=== PATIENT | female | born 1990 | race African-American/Black ===

== ENCOUNTER → 2018-06-29 14:30 | Outpatient (CLI) | payer OTHER, SELFPAY ==
--- NOTE | 2018-06-29 | DI.US.S_ITS ---
PROCEDURE: US OB >= 14 WEEKS FETUS INDICATIONS: ANATOMY SCAN OUTSIDE/PRIOR DATING DATA: Last menstrual period (LMP): Unknown. LMP-based estimated date of delivery (VLAD): N./A.. First dating scan (date and location): 06/29/18. Estimated date of delivery (VLAD) from first dating scan: 11/20/18. TECHNIQUE: Real-time scanning was performed of the fetus, with image documentation and biometric measurements. Endovaginal scanning: No COMPARISON: None. FINDINGS: General: A single living intrauterine gestation is present. Presentation: Breech. Placenta: Placental position is posterior, without previa. Amniotic fluid index: 12.8 cm, normal range is 5-24 cm. heart rate: 145 beats per minute. Maternal cervical canal: 3.7 cm long. Normal lower limit is 2.5 cm. biometrics: Biparietal diameter: 19 weeks 3 days Head circumference: 19 weeks 2 days Abdominal circumference: 20 weeks Femur length: 18 weeks 6 days Estimated gestational age from initial scan: not applicable. Composite gestational: 93 g 6 Measurement variability for biometric dating: +/- 7 days from 14 weeks to 15 weeks 6 days gestation, +/- 10 days from 16 weeks to 21 weeks 6 days gestation, +/- 2 weeks from 22 weeks to 27 weeks 6 days gestation, +/- 3 weeks for 28 weeks gestation or later. weight reference: 4500 g or EFW >90/95% is considered macrosomia or large for gestational age. EFW <10% is small for gestational age. EFW 5% or less is considered intra-uterine growth restriction. Anatomic survey: Neuro: Ventricles are non-dilated at less than 10 mm. Cisterna magna is normal at 3-11 mm. Cerebellum is normal in size and morphology. Nuchal skin fold: Normal at less than 6 mm between 14-21 weeks gestational age. Face: Nose and lips, facial profile are normal. Spine: No evidence for spina bifida. Heart: 4-chambered heart is present, with normal ventricular outflow tracts. Diaphragm: Diaphragm is intact. Stomach: Left-sided stomach is present. Kidneys: No hydronephrosis. Normal is less than 5 mm in 2nd trimester, less than 7 mm in 3rd trimester. Cord: 3-vessel cord has orthotopic insertion. Bladder: Normal in size. Extremities: All 4 extremities identified. IMPRESSION: Single living IUP present with a mean composite gestational age of 19 weeks 3 days. Normal anatomic survey. Dictated by: Myles Cabrera [facility] Interpreted: aLrry Esteban MD on 06/29/2018 at 15:44 Approved by: Larry Esteban M.D. on 06/29/2018 at 19:02
== END ==
PROVIDERS: PCP Family Medicine; Visit Provider Family Medicine
DX: Z36.89 Encounter for other specified antenatal screening (principal); Z3A.19 19 weeks gestation of pregnancy
CPT/HCPCS: 76811

== ENCOUNTER 2018-09-28 06:55 | Observation (INO) | payer OTHER, SELFPAY ==
--- NOTE | 2018-09-28 | DI.US.S_ITS ---
PROCEDURE: OB >= 14 WEEKS FETUS, LIMITED. INDICATIONS: LABOR; CERVIX, EFW, OLLIE OUTSIDE/PRIOR DATING DATA: Last menstrual period (LMP): Not available. LMP-based estimated date of delivery (VLAD): Not available. First dating scan (date and location): 06/29/2018. Estimated date of delivery (VLAD) from first dating scan: 11/20/2018. TECHNIQUE: Real-time scanning was performed of the fetus, with image documentation and biometric measurements. Endovaginal scanning: Not performed COMPARISON: [facility], OB >= 14 WEEKS FETUS, 06/29/2018, 14:44. FINDINGS: General: A single living intrauterine gestation is present. Presentation: Vertex. Placenta: Placental position is fundal, without previa. Amniotic fluid index: 11.3 cm, normal range is 5-24 cm. heart rate: 143 beats per minute. Maternal cervical canal: 3.3 cm long. Normal lower limit is 2.5 cm. biometrics: Biparietal diameter: 32 weeks 0 day Head circumference: 32 weeks 4 days Abdominal circumference: 32 weeks 3 days Femur length: 31 weeks 0 day Estimated gestational age from initial scan: 32 weeks 3 days. Composite gestational age from present scan: 32 weeks 0 day Estimated weight and percentile: 1872 gm, 26% for gestational age Measurement variability for biometric dating: +/- 7 days from 14 weeks to 15 weeks 6 days gestation, +/- 10 days from 16 weeks to 21 weeks 6 days gestation, +/- 2 weeks from 22 weeks to 27 weeks 6 days gestation, +/- 3 weeks for 28 weeks gestation or later. weight reference: 4500 g or EFW >90/95% is considered macrosomia or large for gestational age. EFW <10% is small for gestational age. EFW 5% or less is considered intra-uterine growth restriction. Anatomic survey: Not performed. IMPRESSION: 1. A single living intrauterine gestation with appropriate interval growth. 2. Cervix is closed measuring 3.3 cm. 3. Normal OLLIE (11.3 cm). 4. weight is estimated at 1872 gm (26th percentile). Dictated by: Joselo Pineda M.D. on 10/01/2018 at 10:02 Approved by: Joselo Pineda M.D. on 10/01/2018 at 10:09
[2018-09-28 09:09] LABS: RBC Urine None Seen (0-5/HPF)
[2018-09-28 09:13] LABS: Appearance Urine UA CLEAR; Bilirubin Urine UA NEGATIVE (NEGATIVE); Color Urine UA YELLOW; Glucose Urine UA NEGATIVE (Negative); Ketones Urine UA NEGATIVE (NEGATIVE); Leukocyte Esterase Urine UA TRACE (NEGATIVE); Nitrite Urine UA NEGATIVE (Negative); Occult Blood Urine UA TRACE-LYSED (Negative); Protein Urine UA NEGATIVE (Negative); Specific Gravity Urine UA 1.015 (1.000-1.035); Urobilinogen Urine UA 0.2 E.U./dL (0.2)
[2018-09-28] MEDS: LACTATED RINGERS 1,000 ML 150 ML IV (09:22)
[2018-09-28 09:24] LABS: Bacteria Urine Few (2-10); Culture Indicated Urine Specimen Cultured; Squamous Epithelial Cell Urine 1-5 /HPF; WBC Urine 0-1/HPF (0-5/HPF)
[2018-09-28 11:05] LABS: Strep Grp B PCR NEG for Grp B Strep
[2018-09-28] MEDS: NIFEdipine 10 MG CAPSULE PO (11:23)
--- NOTE | 2018-09-28 11:36 | PM.OBTRLD ---
Visit Information Visit Information Date of evaluation: 09/28/18 Primary OB Provider: Natalya Khoury On-call OB Provider: Opal Lees Reason for Evaluation: Yes pre-term labor Comments/Additional reasons for admission: Patient presented to the center with irregular painful contractions since the night prior as well as light spotting in the morning. No recent intercourse. Denied urinary symptoms. Has had increased vaginal discharge during which she has discussed with her PCP. She had three contractions the first hour on the monitor. US showed cervical length of 3.3 cm and normal OLLIE. Contractions spaced with IV hydration and nifedipine and patient reported improvement in her pain. UA was not concerning for UTI however urine culture is pending. Wet preg negative. Gonorrhea/chlamydia and GBS pending. Patient was discharged home with a prescription for nifedipine and instructions to follow up with Dr. Khoury next week. Return precautions reviewed with patient as well. Objective Labs Labs: Laboratory Results - last 24 hr 09/28/18 09/28/18 08:40 09:20 Urine Color Yellow Urine Appearance Clear Urine pH 7.0 Ur Specific [place] 1.015 Urine Protein Negative Urine Glucose (UA) Negative Urine Ketones Negative Urine Occult Blood Trace-lysed Urine Nitrate Negative Urine Bilirubin Negative Urine Urobilinogen 0.2 Ur Leukocyte Esterase Trace H Urine RBC None seen Urine WBC 0-1/hpf Ur Squamous Epith Cells 1-5 /hpf Urine Bacteria Few (2-10) H Ur Culture Indicated? Specimen cultured Group B Strep (PCR) Neg for grp b strep Evaluation Evaluation Baseline heart rate: 140 Variability: Moderate (11-25) monitor accelerations: Present monitor decelerations: Absent Uterine Contraction Intensity: Mild Category of Tracing: I Laboratory results: Laboratory Tests 09/28/18 09/28/18 08:40 09:20 Urine Color Yellow Urine Appearance Clear Urine pH 7.0 Ur Specific [place] 1.015 Urine Protein Negative Urine Glucose (UA) Negative Urine Ketones Negative Urine Occult Blood Trace-lysed Urine Nitrate Negative Urine Bilirubin Negative Urine Urobilinogen 0.2 Ur Leukocyte Esterase Trace H Urine RBC None seen Urine WBC 0-1/hpf Ur Squamous Epith Cells 1-5 /hpf Urine Bacteria Few (2-10) H Ur Culture Indicated? Specimen cultured Group B Strep (PCR) Neg for grp b strep Diagnosis, Plan/Disposition Final Diagnosis (1) 32 weeks gestation of : Current Visit: No Status: Acute (2) contractions: Current Visit: No Status: Acute Plan/Disposition Plan: 28 year old at 32+2 weeks gestation with h/o prior . Patient presented with infrequent though painful contractions and reports of spotting. OB Disposition: home
[2018-10-03 13:40] LABS: C.trachomatis RNA Not detected
[2018-10-03 13:41] LABS: N.gonorrhoeae RNA Not detected
== END 2018-09-28 12:59 | disposition home or self-care (01) ==
PROVIDERS: Family Medicine; Admitting Provider Family Medicine; PCP Family Medicine; Visit Provider Family Medicine
DX: O60.03 Preterm labor without delivery, third trimester (principal); Z3A.32 32 weeks gestation of pregnancy
CPT/HCPCS: 59050; 76801; 76811; 81001; 87081; 87086; 87147; 87210; 87491; 87591; 87653; 96360; G0378; G0379

== ENCOUNTER 2018-10-24 21:07 | Outpatient (CLI) | payer OTHER, SELFPAY | END 2018-10-24 21:54 | disposition home or self-care (01) | LOC: LABOR 21:10 → OB 10-26 12:32 | PROVIDERS: PCP Family Medicine; Visit Provider Family Medicine | DX: O47.03 False labor before 37 completed weeks of gestation, third trimester (principal); Z3A.36 36 weeks gestation of pregnancy | CPT/HCPCS: 59025; 84112; G0378; G0379 ==

== ENCOUNTER → 2018-10-26 16:23 | Outpatient (REF) | payer OTHER, SELFPAY | LOC: LAB 16:23 | PROVIDERS: PCP Family Medicine; Visit Provider Family Medicine | DX: Z34.03 Encounter for supervision of normal first pregnancy, third trimester (principal) | CPT/HCPCS: 87081; 87147 ==

== ENCOUNTER 2018-11-12 05:28 | Inpatient (IN) | payer OTHER, SELFPAY ==
--- NOTE | 2018-11-12 07:14 | PM.OBHP.1 ---
OB HPI Date/Time Date of admission: 11/12/18 Date Patient Seen: 11/12/18 Time Patient Seen: 07:15 History of Present Condition Chief complaint: [id number] : 3 Para: 1 Estimated Date of Delivery: 11/19/18 Narrative: Kelly Vee is a 28 year old female 39 weeks gestational age by good [employer] who presents for repeat section. Patient has had an uncomplicated except for some labor which she has been on Procardia for up until delivery date. No other complications. Feeling well. No leaking fluid. No bleeding no pain. good movement. Patient had previous 01/20/2012 with male 7 lb no complications. Patient with no significantt past medical history Indications Operative indications ( section): previous uterine surgery History of Present care: good care Dating criteria: LMP confirmed by 1st trimester US Abnormal ultrasound findings: None Obstetrical complications: other Medical complications: none Narrative: History of labor Preadmission Labs Blood type: O (+) positive -: Antibody screen: negative, GBS status: negative, HBsAG: negative, HIV: negative, HSV 1: negative, HSV 2: negative and RPR/VDLR: negative -: Chlamydia screen: not detected and Gonorrhea screen: not detected -: Rubella: immune HCAB: negative PAP: Normal Integrated screen: Not done Prior (ies) History: previous c/s 01/20/12 emergent 7lb male no complications Evaluation Evaluation Baseline heart rate: 140 monitor decelerations: Absent Meds Home Medications Medication Instructions Recorded Confirmed Type nifedipine 10 mg PO Q2H PRN #30 cap 09/28/18 Rx nifedipine 10 mg PO Q2HR PRN #30 cap 09/28/18 Rx Review of Systems Review of Systems All systems reviewed & are unremarkable except as noted in HPI and below Exam Narrative Exam Narrative: Alert female smiling interactive in no acute distress. Lungs are clear. Heart regular rate and rhythm. Abdomen is soft positive bowel sounds gravid vertex extremities without cyanosis clubbing edema. Normal reflexes Assessment and Plan Assessment and Plan Assessment and Plan narrative: Thirty-nine week gestational age otherwise healthy female with previous section. Proceed for repeat section discussed with her and her . Consents previously been sign. No questions today.
--- NOTE | 2018-11-12 07:25 | P.HPOB_ITS ---
OB HPI Date/Time Date of admission: 11/12/18 Date Patient Seen: 11/12/18 Time Patient Seen: 07:15 History of Present Condition Chief complaint: [id number] : 3 Para: 1 Estimated Date of Delivery: 11/19/18 Narrative: Kelly Vee is a 28 year old female 39 weeks gestational age by good [employer] who presents for repeat section. Patient has had an uncomplicated except for some labor which she has been on Procardia for up until delivery date. No other complications. Feeling well. No leaking fluid. No bleeding no pain. good movement. Patient had previous 01/20/2012 with male 7 lb no complications. Patient with no significantt past medical history Indications Operative indications ( section): previous uterine surgery History of Present care: good care Dating criteria: LMP confirmed by 1st trimester US Abnormal ultrasound findings: None Obstetrical complications: other Medical complications: none Narrative: History of labor Preadmission Labs Blood type: O (+) positive -: Antibody screen: negative, GBS status: negative, HBsAG: negative, HIV: negative, HSV 1: negative, HSV 2: negative and RPR/VDLR: negative -: Chlamydia screen: not detected and Gonorrhea screen: not detected -: Rubella: immune HCAB: negative PAP: Normal Integrated screen: Not done Prior (ies) History: previous c/s 01/20/12 emergent 7lb male no complications Evaluation Evaluation Baseline heart rate: 140 monitor decelerations: Absent Meds Home Medications Medication Instructions Recorded Confirmed Type nifedipine 10 mg PO Q2H PRN #30 cap 09/28/18 Rx nifedipine 10 mg PO Q2HR PRN #30 cap 09/28/18 Rx Review of Systems Review of Systems All systems reviewed & are unremarkable except as noted in HPI and below Exam Narrative Exam Narrative: Alert female smiling interactive in no acute distress. Lungs are clear. Heart regular rate and rhythm. Abdomen is soft positive bowel sounds gravid vertex extremities without cyanosis clubbing edema. Normal reflexes Assessment and Plan Assessment and Plan Assessment and Plan narrative: Thirty-nine week gestational age otherwise healthy female with previous section. Proceed for repeat section discussed with her and her . Consents previously been sign. No questions today.
--- NOTE | 2018-11-12 07:39 | SUR.OPER ---
Supine on Padded OR bed, head on pillow, safety belt at thigh, arms secured on padded arm boards at <90 degrees abduction. Bump under right buttock. Legs uncrossed with pillow under knees, gel pad to heels, tape over blanket to lower legs.
[2018-11-12] MEDS: CEFOTETAN 2 GM/50 ML PIGGYBACK IV (07:50)
[2018-11-12 08:20] LABS: Add Manual Diff / Slide Review NO; Basophils Absolute Auto 0 /uL (0-100); Basophils Percent Auto 0.5 % (0-2); Eosinophils Absolute Auto 100 /uL (0-450); Eosinophils Percent Auto 0.9 % (2-4); Hematocrit 35.6 % (36-46); Hemoglobin 11.8 g/dL (12.0-16.0); Lymphocytes Absolute Auto 1400 /uL (1100-4500); Mean Corpuscular HGB Conc 33.2 % (30-36); Mean Corpuscular Hemoglobin 30.6 PG (26-34); Monocytes Absolute Auto 600 /uL (0-900); Monocytes Percent Auto 7.3 % (3-14); Neutrophils Absolute Auto 6200 /uL (1500-7000); Neutrophils Percent Auto 74.3 % (50-75); Platelet Count 205 X10^3/uL (150-400); Red Blood Cell Count 3.87 X10^6/uL (4.0-5.2); Red Cell Distribution Width 13.8 % (11.6-14.8); White Blood Cell Count 8.4 X10^3/uL (4.5-11.0)
[2018-11-12 09:03] VITALS: BP 114/53; PULSE 71; RESP 10; TEMP 36.2; O2SAT 99
[2018-11-12 09:10] VITALS: BP 108/52; PULSE 73; RESP 12; O2SAT 98
[2018-11-12 09:13] VITALS: BP 104/59; PULSE 68; RESP 14; O2SAT 97
--- NOTE | 2018-11-12 09:14 | P.OP_ITS ---
Operative Date/Time/Diagnoses Date of procedure: 11/12/18 Time of procedure: 09:06 Pre-op diagnosis: Thirty-nine week intrauterine with history of previous section Post-op diagnosis: same Procedure & Clinicians Procedure: Secondary low transverse section Same procedure as scheduled: Yes Indications: Previous section Surgeon: Sonny Vazquez Weight Loss Physician: Natalya Khoury Anesthesia Type: Spinal Operative Notes Findings: Viable female infant with Apgars of 9 and 9. Normal pelvic organs. Closure Type: primary Specimen(s): none sent Applied: catheter Estimated Blood Loss (mL): 400 Blood products transfused: none Procedure in detail: Patient was consented and taken to the operative therapy. Scoapes procedure was followed. Spinal was placed without complications. Patient was placed in the supine position wedged. Cantu was placed. Prepped and draped in the usual manner. Pfannenstiel incision was made through previous scar. Sharp dissection down to the fascia. Fascia was incised with scalpel. Fascia was then dressed superior aspect and moderate amount of scar but was bluntly and sharply dissected off muscle layer. During this process peritoneum was entered. Inferior aspect was then elevated in similar manner. The peritoneum incision was then extended bluntly. Bladder blade was placed. Bladder flap was then incised. Developed and bladder blade was placed into the bladder flap. A low transverse incision was then incised on uterus until clear fluid was noted. Was then bluntly extended laterally. Child's head was easily delivered along with rest of his body after bulb suction of mouth and nose. No nuchal cord. Cord was clamped. Child was crying and no resuscitation was needed. Cord bloods were obtained. Placenta was then manually extracted. Wet laps were used x2 to remove products of conception. Corners uterine incision was then grasped with ring forceps and inferior aspect of uterine incision. Ring forceps was then passed through the cervix into the vagina and handed off the operative theater. Uterine incision was closed with running locked 0 chromic. Excellent hemostasis. Second running non locked 0 chromic imbricating stitch was then done. Irrigation was then done and removed. Tubes were evaluated and found to be normal. Bladder blade was closed with running 3 0 Vicryl. Hemostasis was continued to be excellent. Peritoneum was then closed with running 2 0 Vicryl. Fascia was closed with running 1 Vicryl. Irrigation was done to the subcutaneous tissue. 330 Vicryl interrupted sutures were used to approximate the wound edges close space. Incision was then closed with running for all Vicryl. Steri-Strips and dressing was applied. All sponge instrument and needle counts were correct. EBL 400 cc. Mother and infant stable condition Complications: none Condition: stable Plan for aftercare: PACU then returned to Labor and delivery for post care.
[2018-11-12 09:18] VITALS: BP 105/59; PULSE 83; RESP 14; TEMP 36.2; O2SAT 105
[2018-11-12] MEDS: ONDANSETRON 4 MG/2 ML INJ IV ×2 (10:32→17:23)
[2018-11-12] MEDS: DEXTROSE 5% IV (10:46)
[2018-11-12] MEDS: OXYTOCIN IV (10:46)
[2018-11-12] MEDS: LACTATED RINGERS IV (10:46)
[2018-11-12] MEDS: METOCLOPRAMIDE 10 MG/2 ML INJ IV (11:51)
[2018-11-12 12:17] VITALS: BP 116/67
[2018-11-12] MEDS: NALOXONE 0.4 MG/ML VIAL IV ×4 (15:01→22:44)
[2018-11-12] MEDS: KETOROLAC 30 MG/ML VIAL IV ×2 (17:35→23:05)
[2018-11-12] MEDS: DEXTROSE 5%-LACTATED RINGERS 1,000 ML 125 ML IV (18:38)
[2018-11-12 23:05] VITALS: TEMP 37
[2018-11-13] MEDS: NALOXONE 0.4 MG/ML VIAL IV (05:54)
[2018-11-13 05:55] VITALS: TEMP 37.1
[2018-11-13] MEDS: KETOROLAC 30 MG/ML VIAL IV (05:55)
[2018-11-13 07:29] LABS: Hematocrit 33.1 % (36-46); Hemoglobin 10.9 g/dL (12.0-16.0)
--- NOTE | 2018-11-13 08:22 | P.PN_ITS ---
Subjective Date Patient Seen: 11/13/18 Time Patient Seen: 08:20 Interval history: Postop day 1. Patient seen in follow-up. Nausea is resolved. She ate a big breakfast this morning and is feeling well. Minimal bleeding. Pain is well controlled. No other significant new changes complaint. Exam Vital Signs (past 8 hours): - 11/13/18 05:55 Temperature 98.8 F Oxygen Delivery Method Room Air Narrative Exam Narrative: Alert smiling female no acute distress. Lungs are clear heart regular rate and rhythm incision is clean and dry Objective Labs Result Diagrams: 11/13/18 07:05 Labs: Laboratory Results - last 24 hr 11/12/18 11/12/18 11/13/18 07:53 07:53 07:05 WBC 8.4 RBC 3.87 L Hgb 11.8 L 10.9 L Hct 35.6 L 33.1 L MCV 92.0 MCH 30.6 MCHC 33.2 RDW 13.8 Plt Count 205 Neut % (Auto) 74.3 Lymph % (Auto) 17.0 L [place] % (Auto) 7.3 Eos % (Auto) 0.9 L Baso % (Auto) 0.5 Neut # (Auto) 6200 Lymph # (Auto) 1400 [place] # (Auto) 600 Eos # (Auto) 100 Baso # (Auto) 0 Blood Type O Positive Antibody Screen Negative Assessment & Plan Assessment & Plan narrative: Postop day 1. Doing extremely well. I anticipate her to being discharged tomorrow. Routine care discussed. Questions answered. Hematocrit minimal drop. Continue current care shower tonight discharge tomorrow morning
[2018-11-13] MEDS: DOCUSATE 250 MG CAPSULE PO (09:40)
[2018-11-13] MEDS: IBUPROFEN 600 MG TABLET PO ×3 (11:44→23:15)
[2018-11-13] MEDS: OXYCODONE/ACETAMINOPHEN 5/325 TABLET 1 TAB PO ×2 (17:50→23:15)
[2018-11-14] MEDS: OXYCODONE/ACETAMINOPHEN 5/325 TABLET 1 TAB PO ×3 (02:46→11:25)
[2018-11-14] MEDS: IBUPROFEN 600 MG TABLET PO ×2 (05:30→11:26)
--- NOTE | 2018-11-14 09:17 | P.DS_ITS ---
History of Present Illness Date Patient Seen: 11/14/18 Time Patient Seen: 09:14 Chief complaint: [id number] Narrative: See H and P here for repeat section at 39 weeks Discharge Providers Date of admission: 11/12/18 05:28 Discharge Date: 11/14/18 Primary care physician: Natalya Khoury MD Consults: 11/12/18 09:56 Consult to [employer] Routine Comment: Discharge provider: Sonny Vazquez MD Summary Discharge Diagnosis: Thirty-nine week intrauterine delivered previous history of section. Hospital Course: Patient returned from recovery room after low transverse ce sarean section and did well. First 12 hours she was quite nauseated and eventually given naloxone which did an excellent job. Pain control was excellent bleeding was minimal on day 1 she was feeling good eating well getting up moving around Cantu was discontinued and she did well. On day 2 she was a little more tender but feeling good. Requesting to go home. She had no fevers chills vital signs were all stable hematocrit was stable only 2 points decreased. She otherwise has no other complaints or problems and would like to go home. Status at Discharge Cognitive/behavioral status at discharge: oriented Functional status at discharge: independent ambulation Overall status at discharge: patient is progressing back to baseline Exam Vital Signs (past 8 hours): Oxygen Delivery Method Room Air Narrative Exam Narrative: Alert female smiling interactive in no acute distress. Lungs are clear. Heart regular rate and rhythm. Abdomen is soft incision has some small amount of blood but not actively leaking uterus is firm and at umbilicus. Extremities without cyanosis clubbing edema. Calves are nontender. neurologic exam is normal she is alert oriented and appropriate Objective Labs Result Diagrams: 11/13/18 07:05 Discharge Plan Discharge Plan Patient Disposition: Home Discharge Med Rec/Prescriptions Prescriptions: New oxycodone-acetaminophen 5-325 mg Tablet 2 tab PO Q4HR PRN (Reason: Pain, Severe (7-10)) Qty: 24 RF: 0 ibuprofen 600 mg Tablet 600 mg PO Q6HR PRN (Reason: As Needed For Fever/Mild Pain) Qty: 90 RF: 0 docusate sodium 250 mg Capsule 250 mg PO DAILY Qty: 60 RF: 1 Follow up/Referrals: Natalya Khoury MD [Primary Care Provider] - Provider Discharge Instructions Diet: Diet as Tolerated Activity: no lifting greater than 15lbs for six weeks. no abdominal work until 6 weeks. Skin/Wound/Dressing Care Report to your healthcare provider any signs of infection, such as:: chills, fever, night sweats, increased pain, unusual drainage and unusual redness Dressing: keep dry Discharge Data Primary Care Provider: Natalya Khoury Attending Provider: Sonny Vazquez Admit Date/Time: 11/12/18 05:28
== END 2018-11-14 14:00 | disposition home or self-care (01) | DRG 788 ==
PROVIDERS: Admitting Provider Family Medicine; PCP Family Medicine; Visit Provider Family Medicine
PROC: 10D00Z1 Extraction of Products of Conception, Low, Open Approach (ICD-10-PCS; CPT 59514; principal; 2018-11-12 07:45)
DX: O34.219 Maternal care for unspecified type scar from previous cesarean delivery (principal); Z3A.39 39 weeks gestation of pregnancy; Z37.0 Single live birth; R11.0 Nausea
CPT/HCPCS: 36415; 59050; 85014; 85018; 85025; 86850; 86900; 86901; J1885; J2250; J2274; J2310; J2405; J2590; J2765; J7121

== ENCOUNTER → 2019-12-26 08:10 | Outpatient (CLI) | payer OTHER, SELFPAY ==
--- NOTE | 2019-12-26 | DI.US.S_ITS ---
PROCEDURE: US ABDOMEN COMPLETE INDICATIONS: PAIN TECHNIQUE: Real-time scanning was performed of the abdominal and retroperitoneal organs, with image documentation. COMPARISON: None. FINDINGS: Liver: Liver is normal in size and homogeneous in echotexture. Gallbladder: No findings of gallstones or sludge are seen. The gallbladder wall is not thickened, measuring 3 mm or less. No specific pericholecystic fluid is seen. The sonographic Gamboa sign is negative. Biliary ducts: Intrahepatic bile ducts are non-dilated. Extrahepatic bile duct caliber measures 4 mm. Normal is 6-7 mm or less in diameter, or 10 mm or less post-cholecystectomy. Pancreas: Visualized portions of the pancreas are sonographically normal. Spleen: Spleen is normal in size and homogeneous in echotexture. Kidneys: Kidneys are normal in size and echotexture. Right kidney measures 14.2 cm long; left kidney measures 10.3 cm long. No hydronephrosis or nephrolithiasis. No solid masses. 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 Aorta: Visualized aorta is normal in caliber at less than 3 cm. Iliacs: Proximal common iliac arteries are normal in caliber at less than 2.5 cm. IVC: Intrahepatic inferior vena cava is patent. Miscellaneous: No free abdominal fluid. IMPRESSION: No imaging explanation is found for this patient's presenting symptoms. The gallbladder demonstrates a normal sonographic appearance. No biliary dilatation is seen. 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 Dictated by: Hernán Dodd M.D. on 12/26/2019 at 9:19 Approved by: Hernán Dodd M.D. on 12/26/2019 at 9:21
== END ==
PROVIDERS: PCP Family Medicine; Referring Provider Family Medicine; Visit Provider Family Medicine
DX: R10.9 Unspecified abdominal pain (principal)
CPT/HCPCS: 76700

== ENCOUNTER → 2020-02-21 08:06 | Outpatient (CLI) | payer OTHER, SELFPAY ==
--- NOTE | 2020-02-21 | DI.NM.S_ITS ---
PROCEDURE: NM HIDA WITH CCK PHARMACEUTICAL: 5.5 mCi Tc-99m mebrofenin IV; 1.6 mcg CCK IV. INDICATIONS: Upper abdominal pain, unspecified TECHNIQUE: Following intravenous administration of Tc-99m mebrofenin, sequential anterior abdominal images were obtained. To evaluate the contractile response of the gallbladder in response to Cholecystokinin (CCK), sincalide (0.02 ?g/kg) was administered by slow intravenous infusion approximately 60 minutes after the administration of the radiopharmaceutical. Sequential imaging was continued for 30 minutes after the start of CCK infusion. Gallbladder ejection fraction was calculated. COMPARISON: [facility], , US ABDOMEN COMPLETE, 12/26/2019, 8:21. FINDINGS: Biliary scan: There is normal tracer uptake and excretion by the liver. There is normal visualization of the intrahepatic ducts, common bile duct, and gallbladder. There is normal tracer transit into the duodenum. There is transient accumulation of tracer activity at the cystic duct and common bile duct junction, uncertain clinical significance. CCK stimulation: There is normal contractile response of the gallbladder to CCK infusion. The calculated gallbladder ejection fraction is 68%; normal values are above 35%. It has been shown that any patient abdominal pain after CCK administration is related to the rate of CCK injection, rather than to any underlying gallbladder disease (Clinical Nuclear Medicine 2012; 37: 63-70. Journal of Nuclear Medicine 2014; 55: 1-9). IMPRESSION: 1. Normal filling of gallbladder. No evidence for acute cholecystitis. 2. Normal contractile response of gallbladder to CCK stimulation. 3. Transient accumulation of tracer activity at the cystic duct and common bile duct junction, uncertain clinical significance. A potential causes a choledochal cyst. If clinically indicated, MRCP may be helpful. Dictated by: Joselo Pineda M.D. on 02/21/2020 at 11:43 Approved by: Joselo Pineda M.D. on 02/21/2020 at 11:53
== END ==
PROVIDERS: PCP Family Medicine; Referring Provider Family Medicine; Visit Provider Internal Medicine Gastroenterology
DX: R10.10 Upper abdominal pain, unspecified (principal)
CPT/HCPCS: 78227; A9537; J2805

== ENCOUNTER → 2020-12-28 14:36 | Outpatient (CLI) | payer OTHER, SELFPAY ==
--- NOTE | 2020-12-28 | DI.RAD.S_ITS ---
PROCEDURE: XR ANKLE LT MIN 3V INDICATIONS: left ankle swelling pain TECHNIQUE: 3 views of the ankle were acquired. COMPARISON: None. FINDINGS: Bones: No acute fracture identified. Scattered degenerative subchondral sclerosis and spurring. Soft tissues: No tibiotalar joint effusion. Achilles tendon appears normal. IMPRESSION: No fracture. If the patient's pain or other symptoms persist, consider further evaluation with MRI Dictated by: Tony Nguyen M.D. on 12/28/2020 at 15:38 Approved by: Tony Nguyen M.D. on 12/28/2020 at 15:40
== END ==
PROVIDERS: PCP Family Medicine; Referring Provider Family Medicine; Visit Provider Family Medicine
DX: M25.572 Pain in left ankle and joints of left foot (principal); M25.472 Effusion, left ankle
CPT/HCPCS: 73610

== ENCOUNTER → 2022-10-14 13:04 | Outpatient (CLI) | payer OTHER, SELFPAY ==
--- NOTE | 2022-10-14 | DI.CT.S_ITS ---
PROCEDURE: CT ABDOMEN PELVIS W CON INDICATIONS: Right lower quadrant pain TECHNIQUE: After the administration of oral and intravenous contrast, axial sections were acquired from the lung bases to the pubic symphysis. Coronal and sagittal reformats were performed. For radiation dose reduction, the following was used: automated exposure control, adjustment of mA and/or kV according to patient size. COMPARISON:None. FINDINGS: Image quality: Excellent. Lung bases: Unremarkable. Heart: No significant findings. ABDOMEN: Liver: Unremarkable. Gallbladder: Unremarkable. Biliary ducts: Unremarkable. Pancreas: Unremarkable. Spleen: Unremarkable. Adrenal Glands: Unremarkable. Kidneys and Ureters: Unremarkable. Stomach and Bowel: Stomach, small bowel loops, and colon are unremarkable. Normal appendix. Peritoneum: No abnormal intraperitoneal fluid. No free air. Ventral Wall: No hernia. Abdominal Nodes: No retroperitoneal or mesenteric adenopathy by size criteria. Vessels: Aorta and inferior vena cava are normal in size. PELVIS: Pelvic Organs: Unremarkable. Bladder: Unremarkable. Pelvic Nodes: No enlarged lymph nodes. Miscellaneous: No inguinal hernias are seen. Bones: Unremarkable. IMPRESSION: 1. No evidence of acute abdominal process. No findings which explain right lower quadrant pain. A normal appendix is identified. Dictated by: Dre Silva M.D. on 10/14/2022 at 15:27 Approved by: Dre Silva M.D. on 10/14/2022 at 15:29
== END ==
PROVIDERS: PCP Family Medicine; Referring Provider Registered Nurse; Visit Provider Registered Nurse
DX: R10.31 Right lower quadrant pain (principal)
CPT/HCPCS: 74177; Q9967